=== PATIENT | female | born 1995 | race Two or more races ===

== ENCOUNTER 2021-06-23 19:07 | Emergency (ER) | payer OTHER ==
[~2021-06-23] VITALS: Ht 154.9 cm; Wt 61.2 kg
[2021-06-24] MEDS ORDERED: GUAIATUSSIN AC10 ML PO (00:12)
[2021-06-24] MEDS ORDERED: OSEL75CA PO (00:12)
== END 2021-06-24 00:50 | disposition home or self-care (01) ==
LOC: ER 19:07
DX: J10.1 Influenza due to other identified influenza virus with other respiratory manifestations (principal)